=== PATIENT | female | born 2000 | race Asian ===

== ENCOUNTER 2019-10-31 15:41 | Inpatient (IN) | payer OTHER ==
[2019-10-31] MEDS ORDERED: NALOXONE INJ 0.4MG/1ML VIAL (J2310 PER 1MG) As Ordered ONE (15:47)
[2019-10-31] MEDS ORDERED: LIDOCAINE 2% 5ML JELLY UROJET TOP ONE (16:00)
[2019-10-31] MEDS ORDERED: NS 1,000 ML IV ONE ×3 (16:00→21:45)
[2019-10-31] MEDS ORDERED: NALOXONE INJ 0.4MG/1ML VIAL (J2310 PER 1MG) IV STA ×2 (16:09→16:14)
[2019-10-31] MEDS ORDERED: FAMOTIDINE IV BAG 20 MG in IV 1 EA IV ONE (16:15)
[2019-10-31] MEDS ORDERED: methylPREDNISolone INJ 125 MG/2 ML VIAL (J2930) IV ONE (16:15)
[2019-10-31 16:27] LABS: BASO % 0.1 % (0.0-1.0); HEMATOCRIT 42.3 % (36.0-47.0); HEMOGLOBIN 13.1 g/dl (12.0-15.5); LYMPH # 0.9 10^3/uL (1.5-5.0); LYMPH % 6.4 % (24.0-44.0); MEAN CORPUSCULAR HEMOGLOBIN 18.9 pg (27.0-33.0); MEAN CORPUSCULAR VOLUME 61.1 fl (80.0-96.0); MONO # 0.5 10^3/uL (0.0-0.8); MONO % 3.3 % (0.0-5.0); NEUTROPHILS # 12.4 10^3/uL (1.5-8.5); NEUTROPHILS % 89.8 % (36.0-66.0); PLATELET COUNT, AUTOMATED 431 10^3/uL (150-450); RED BLOOD COUNT 6.92 10^6/uL (4.00-5.40); WHITE BLOOD COUNT 13.9 10^3/uL (4.0-10.0)
[2019-10-31 16:31] LABS: AMPHETAMINES LEVEL URINE NEGATIVE (NEGATIVE); BARBITURATES URINE POSITIVE (NEGATIVE); BENZODIAZEPINES URINE NEGATIVE (NEGATIVE); CANNABINOIDS URINE NEGATIVE (NEGATIVE); COCAINE METABOLITE URINE NEGATIVE (NEGATIVE); METHADONE URINE NEGATIVE (NEGATIVE); OPIATES URINE NEGATIVE (NEGATIVE); PHENCYCLIDINE URINE NEGATIVE (NEGATIVE)
[2019-10-31] MEDS ORDERED: AMMONIA AROMATIC INHALANT As Ordered ONE (16:48)
[2019-10-31] MEDS ORDERED: SODIUM BICARBONATE 8.4% INJ 50 ML SYRINGE As Ordered ONE (16:50)
[2019-10-31] MEDS ORDERED: SODIUM BICARBONATE 8.4% INJ 50 ML SYRINGE IV ONE ×2 (17:00→17:30)
[2019-10-31] MEDS ORDERED: SODIUM BICARBONATE 8.4% INJ 50 ML SYRINGE IV STA (17:07)
[2019-10-31 17:13] LABS: ACETAMINOPHEN LEVEL 54.8 UG/ML (10.0-30.0); ALBUMIN 5.1 GM/DL (3.2-5.2); ALT/SGPT 65 U/L (12-78); BILIRUBIN,DIRECT 0.2 MG/DL (0.0-0.2); BILIRUBIN,TOTAL 0.8 MG/DL (0.2-1.0); BLOOD UREA NITROGEN 9 MG/DL (7-18); CALCIUM LEVEL 9.2 MG/DL (8.5-10.1); CARBON DIOXIDE LEVEL 25 MEQ/L (21-32); CHLORIDE LEVEL 105 MEQ/L (98-107); CREATININE FOR GFR 0.94 MG/DL (0.55-1.30); ETHYL ALCOHOL (ETHANOL) < 0.003 % (0.000-0.010); GLOMERULAR FILTRATION RATE > 60.0 (>60); GLUCOSE, FASTING 163 MG/DL (70-100); POTASSIUM SERUM 4.3 MEQ/L (3.5-5.1); SALICYLATE LEVEL < 1.7 MG/DL (5.0-30.0); SODIUM LEVEL 140 MEQ/L (136-145); THYROID STIMULATING HORMONE 0.668 uIU/ML (0.358-3.740); TOTAL PROTEIN 8.7 GM/DL (6.4-8.2)
[2019-10-31] MEDS ORDERED: LR 1,000 ML IV ONE (17:15)
[2019-10-31] MEDS ORDERED: PROPOFOL 1,000 MG/100 ML VIAL As Ordered ONE (17:15)
[2019-10-31] MEDS ORDERED: propofoL 1,000 MG in IV 1 EA IV SCH (17:22)
[2019-10-31] MEDS ORDERED: SUCCINYLCHOLINE INJ 200 MG/10 ML VIAL (J0330) IV ONE (17:30)
[2019-10-31] MEDS ORDERED: ETOMIDATE INJ 20MG/10ML VIAL IV ONE (17:30)
[2019-10-31] MEDS ORDERED: MIDAZOLAM 5MG/ML 1ML VIAL (J2250 PER 1MG) As Ordered ONE ×2 (17:34→17:35)
[2019-10-31] MEDS ORDERED: MIDAZOLAM HCL 50 MG in D5W 40 ML IV SCH (17:45)
[2019-10-31] MEDS ORDERED: MIDAZOLAM 5MG/ML 1ML VIAL (J2250 PER 1MG) IV PRN (17:45)
[2019-10-31] MEDS ORDERED: MIDAZOLAM HCL 100 MG in D5W 80 ML IV SCH (17:45)
[2019-10-31 17:54] LABS: CPK CREATINE PHOSPHOKINASE 21484 U/L (26-192)
[2019-10-31 17:56] LABS: MAGNESIUM LEVEL 2.4 MG/DL (1.8-2.4)
[2019-10-31] MEDS ORDERED: REFRIGERATOR IV KEYS XX PRN (18:00)
[2019-10-31] MEDS ORDERED: LR 1,000 ML IV SCH (18:45)
[2019-10-31] MEDS ORDERED: D5W IV ONE ×2 (19:00→20:00)
[2019-10-31] MEDS ORDERED: ACETYLCYSTEINE IV ONE ×2 (19:00→20:00)
--- NOTE | 2019-10-31 19:00 | ECGEPIP ---
[facility] - ED Test Date: 2019-10-31 Pat Name: MEGAN SOUTH Department: Room: - Gender: Female Grades 1 [employer] 6 Teacher: lionel : 2000 Requested By: Tesha Brooks Order Number: [id number] Reading MD: Gilberto Plata Measurements Intervals [place] Rate: 109 P: 63 HI: 148 QRS: 232 QRSD: 92 T: 50 QT: 297 QTc: 401 Interpretive Statements SINUS TACHYCARDIA NO PRIORS FOR COMPARISON Electronically Signed on 10-31-2019 19:00:16 EDT by Gilberto Plata
--- NOTE | 2019-10-31 19:02 | ECGEPIP ---
[facility] - ED Test Date: 2019-10-31 Pat Name: MEGAN SOUTH Department: Room: - Gender: Female Cdl Truck Driver: espinoza : 2000 Requested By: Tesha Brooks Order Number: [id number] Reading MD: Gilberto Plata Measurements Intervals [place] Rate: 139 P: 106 CO: 171 QRS: 178 QRSD: 137 T: 6 QT: 387 QTc: 589 Interpretive Statements SINUS TACHYCARDIA MARKED RIGHT AXIS DEVIATION RIGHT BUNDLE BRANCH BLOCK, NEW COMPARED TO PRIOR ON SAME DATE Electronically Signed on 10-31-2019 19:02:10 EDT by Gilberto Plata
--- NOTE | 2019-10-31 19:08 | ECGEPIP ---
[facility] - ED Test Date: 2019-10-31 Pat Name: MEGAN SOUTH Department: Room: - Gender: Female Head Esthetician: espinoza : 2000 Requested By: Tesha Brooks Order Number: [id number] Reading MD: Gilberto Plata Measurements Intervals [place] Rate: 128 P: SC: 0 QRS: 185 QRSD: 143 T: 24 QT: 432 QTc: 631 Interpretive Statements SINUS TACHYCARDIA RIGHT BUNDLE BRANCH BLOCK SIMILAR TO PRIOR ON SAME DATE Electronically Signed on 10-31-2019 19:08:22 EDT by Gilberto Plata
[2019-10-31] MEDS ORDERED: PANTOPRAZOLE 40MG VIAL (C9113 PER 1) IV SCH (20:00)
[2019-10-31 20:05] VITALS: BP 111/86
[2019-10-31] MEDS: ENOXAPARIN 30MG/0.3ML SYRINGE (J1650 PER 10MG) SC SCH (20:35)
[2019-10-31] MEDS: CHLORHEXIDINE GLUCONATE 0.12 % 15ML UDC (PERIDEX ORAL RINSE) MT SCH (20:35)
[2019-10-31 20:57] LABS: VENOUS BASE EXCESS 0.2 (-2.0-2.0); VENOUS HCO3 22.9 MEQ/L (23.0-27.0); VENOUS PARTIAL PRESSURE CO2 31.8 mmHg (38.0-50.0); VENOUS PARTIAL PRESSURE O2 145.7 mmHg (30.0-50.0); VENOUS PH 7.476 UNITS (7.330-7.430); VENOUS STANDARD HCO3 24.7 MEQ/L; VENOUS TOTAL CO2 23.9 MEQ/L (24.0-28.0)
[2019-10-31 21:00] VITALS: BP 114/91
[2019-10-31] MEDS ORDERED: diphenhydrAMINE 25MG CAP PO PRN (21:00)
[2019-10-31] MEDS ORDERED: diphenhydrAMINE 50MG/ML VIAL (J1200) IV PRN (21:00)
[2019-10-31 21:14] LABS: INR 1.28; PROTHROMBIN TIME 15.7 SECONDS (11.8-14.0)
[2019-10-31 21:30] LABS: ALBUMIN 3.8 GM/DL (3.2-5.2); ALT/SGPT 73 U/L (12-78); BILIRUBIN,TOTAL 0.7 MG/DL (0.2-1.0); BLOOD UREA NITROGEN 6 MG/DL (7-18); CALCIUM LEVEL 8.3 MG/DL (8.5-10.1); CARBON DIOXIDE LEVEL 21 MEQ/L (21-32); CHLORIDE LEVEL 112 MEQ/L (98-107); CREATININE FOR GFR 0.76 MG/DL (0.55-1.30); GLOMERULAR FILTRATION RATE > 60.0 (>60); GLUCOSE, FASTING 156 MG/DL (70-100); POTASSIUM SERUM 3.4 MEQ/L (3.5-5.1); SODIUM LEVEL 149 MEQ/L (136-145); TOTAL PROTEIN 6.8 GM/DL (6.4-8.2)
[2019-10-31] MEDS ORDERED: GLUCAGON INJ 1MG VIAL SC PRN (21:45)
[2019-10-31] MEDS ORDERED: GLUCOSE 4GM CHEW TABLET PO PRN (21:45)
[2019-10-31] MEDS ORDERED: D5W/0.45% SODIUM CHLORIDE 1,000 ML IV SCH (21:45)
[2019-10-31] MEDS ORDERED: DEXTROSE 50% 50 ML SYRINGE IV PRN (21:45)
[2019-10-31 22:00] VITALS: BP 116/87
[2019-10-31] MEDS: KCL 10MEQ/100ML SWI (KRUN) 10 MEQ in IV 1 EA IV SCH (22:19)
[2019-10-31 23:00] LABS: CPK CREATINE PHOSPHOKINASE 24116 U/L (26-192)
--- NOTE | 2019-10-31 23:40 | REP ---
REASON: Unresponsive due to drug overdose. PRIORS: None. FINDINGS: The technique utilized in obtaining the radiograph has magnified the cardiac silhouette and accentuated the interstitial markings. The superior mediastinal structures are midline. The cardiac silhouette is unremarkable in size, shape, and position. The diaphragmatic surfaces of the lungs are regular, and the costophrenic angles are clear. The pulmonary beauchamp are clear. The imaged osseous structures are intact. IMPRESSION: There is no acute cardiopulmonary disease. Electronically Signed by Marcelo Rain DO 11/01/2019 09:44 A
[2019-11-01] VITALS (22 sets, daily range): BP systolic 100–120; BP diastolic 70–90
[2019-11-01] MEDS ORDERED: ACETYLCYSTEINE IV ONE ×2
[2019-11-01] MEDS ORDERED: D5W IV ONE ×2
[2019-11-01] MEDS ORDERED: ETOMIDATE INJ 20MG/10ML VIAL ONE (00:08)
[2019-11-01] MEDS ORDERED: SUCCINYLCHOLINE 100 MG/5 ML SYRINGE (J0330) ONE (00:08)
[2019-11-01] MEDS: MIDAZOLAM INJ 2MG/2ML VIAL (J2250 PER 1MG) IV PRN ×11 (00:22→22:11)
[2019-11-01] MEDS: HumaLOG INSULIN (NovoLOG) PER UNIT SC SCH ×5 (00:22→23:51)
[2019-11-01] MEDS: NS 0.45% 1,000 ML IV SCH ×4 (00:22→19:09)
[2019-11-01] MEDS: KCL 10MEQ/100ML SWI (KRUN) 10 MEQ in IV 1 EA IV SCH ×2 (00:22→01:42)
--- NOTE | 2019-11-01 00:50 | REP ---
CT BRAIN WITHOUT CONTRAST: HISTORY: Unresponsiveness. CT FINDINGS: Digital preliminary theoretical physics teacher radiograph demonstrates a nasopharyngeal airway tube. Bony calvarium is intact. Bone window settings show the visualized paranasal sinuses are clear. No intraorbital abnormality is seen. No skull fracture or bony destructive lesion is seen. No scalp hematoma is appreciated. On soft tissue window settings, lateral, third, fourth ventricles are normal in size and position. [place]-white differentiation pattern is normal above and below the tentorium. There is no evidence of intracranial hemorrhage. No extra-axial fluid collection is seen. No mass or infarct is observed. No midline shift seen. IMPRESSION: Nasopharyngeal airway tube noted. Normal noncontrast head CT. Electronically Signed by Geo Mendez MD 11/01/2019 08:19 A
--- NOTE | 2019-11-01 01:21 | REP ---
PORTABLE CHEST X-RAY, SINGLE VIEW: HISTORY: Post intubation. COMPARISON CHEST X-RAY: 10/31/2019 FINDINGS: Endotracheal tube is seen in good position. The endotracheal cuff appears slightly overinflated. Nasogastric tube enters the left upper quadrant of the abdomen. The lungs are symmetrically aerated and clear. The pleural angles are sharp. Heart size is normal. IMPRESSION: Endotracheal tube cuff slightly overinflated. Tube in good position. NG tube in place. Otherwise, no acute disease. Electronically Signed by Geo Mendez MD 11/01/2019 08:23 A
[2019-11-01 04:56] LABS: HEMATOCRIT 38.2 % (36.0-47.0); HEMOGLOBIN 11.9 g/dl (12.0-15.5); MEAN CORPUSCULAR HEMOGLOBIN 18.8 pg (27.0-33.0); MEAN CORPUSCULAR HGB CONC 31.2 g/dl (32.0-36.5); MEAN CORPUSCULAR VOLUME 60.4 fl (80.0-96.0); RED BLOOD COUNT 6.32 10^6/uL (4.00-5.40); WHITE BLOOD COUNT 16.4 10^3/uL (4.0-10.0)
[2019-11-01 05:35] LABS: LYMPHOCYTES 10 % (16-44); MONOCYTES 1 % (0-5); NEUTROPHILS 88 % (28-66); PLATELET CLUMPS SMALL AMT; PLATELET ESTIMATE NORMAL (NORMAL)
[2019-11-01 05:36] LABS: ANISOCYTOSIS 1+; HYPOCHROMASIA 1+
[2019-11-01 05:39] LABS: MICROCYTOSIS 3+; OVALOCYTES 1+; POLYCHROMASIA 1+
[2019-11-01 05:50] LABS: ALBUMIN 3.5 GM/DL (3.2-5.2); ALT/SGPT 74 U/L (12-78); BILIRUBIN,TOTAL 0.6 MG/DL (0.2-1.0); BLOOD UREA NITROGEN 5 MG/DL (7-18); CALCIUM LEVEL 8.3 MG/DL (8.5-10.1); CARBON DIOXIDE LEVEL 21 MEQ/L (21-32); CHLORIDE LEVEL 113 MEQ/L (98-107); CREATININE FOR GFR 0.61 MG/DL (0.55-1.30); GLOMERULAR FILTRATION RATE > 60.0 (>60); GLUCOSE, FASTING 98 MG/DL (70-100); MAGNESIUM LEVEL 1.9 MG/DL (1.8-2.4); POTASSIUM SERUM 3.5 MEQ/L (3.5-5.1); SODIUM LEVEL 143 MEQ/L (136-145); TOTAL PROTEIN 6.2 GM/DL (6.4-8.2)
[2019-11-01 06:08] LABS: ABG BASE EXCESS -1.6 (-2.0-2.0); ABG HCO3 19.9 MEQ/L (22.0-26.0); ABG O2 SATURATION 98.6 % (95.0-99.0); ABG PARTIAL PRESSURE CO2 25.2 mmHg (35.0-45.0); ABG PARTIAL PRESSURE O2 128.6 mmHg (75.0-100.0); ABG STANDARD HCO3 23.1 MEQ/L (22.0-26.0); ABG TOTAL CO2 20.7 MEQ/L (22.0-29.0); ABG pH (ARTERIAL) 7.516 UNITS (7.350-7.450)
[2019-11-01 06:22] LABS: HEMATOCRIT 36.6 % (36.0-47.0); HEMOGLOBIN 11.5 g/dl (12.0-15.5); MEAN CORPUSCULAR HEMOGLOBIN 18.9 pg (27.0-33.0); MEAN CORPUSCULAR HGB CONC 31.4 g/dl (32.0-36.5); MEAN CORPUSCULAR VOLUME 60.2 fl (80.0-96.0); PLATELET COUNT, AUTOMATED 362 10^3/uL (150-450); RED BLOOD COUNT 6.08 10^6/uL (4.00-5.40); WHITE BLOOD COUNT 16.6 10^3/uL (4.0-10.0)
[2019-11-01 06:22] LABS: CPK CREATINE PHOSPHOKINASE 18148 U/L (26-192)
--- NOTE | 2019-11-01 07:01 | REP ---
Clinical: Status post intubation. Comparison: 10/31/2019. Findings: Endotracheal tube approximately 1 cm above the adilene. Nasogastric tube courses below left hemidiaphragm. Mediastinum and cardiac silhouette are normal. Right lower lobe infiltrate suggests atelectasis/pneumonia. No effusion. No pneumothorax. Impression: 1. Endotracheal tube approximately 1 cm above the adilene may warrant reevaluation and repositioning. 2. New right lower lobe opacities suggesting atelectasis/pneumonia. Electronically Signed by Corby Crowell MD 11/01/2019 06:54 A
[2019-11-01 07:15] LABS: LYMPHOCYTES 11 % (16-44); MONOCYTES 3 % (0-5); NEUTROPHILS 86 % (28-66); PLATELET ESTIMATE NORMAL (NORMAL)
[2019-11-01 07:16] LABS: MICROCYTOSIS 3+
[2019-11-01 07:17] LABS: OVALOCYTES 2+
[2019-11-01] MEDS: PANTOPRAZOLE 40MG VIAL (C9113 PER 1) IV SCH ×2 (08:37→20:00)
[2019-11-01] MEDS: CHLORHEXIDINE GLUCONATE 0.12 % 15ML UDC (PERIDEX ORAL RINSE) MT SCH ×2 (08:38→20:00)
[2019-11-01] MEDS: propofoL 1,000 MG in IV 1 EA IV SCH ×2 (08:38→19:55)
--- NOTE | 2019-11-01 09:59 | HPE ---
DATE OF ADMISSION: 10/31/2019 CHIEF COMPLAINT: Altered mental status. History was obtained from the chart and collateral information as the patient was unresponsive and unable to provide history. HISTORY OF PRESENT ILLNESS: Ms. Phillips is a 19-year-old female with no significant medical history who presented with a complaint of altered mental status. The patient apparently had gotten into an argument with her family the night before over graduating college. She had gone into her room and barricaded herself in there. When she did not come down as usual in the morning the patient's family had gone into her room and found her unresponsive. She reportedly had her pill box medications there that were empty. As per her father, she has things for pain such as Tylenol, Motrin, as well as medications for migraine which is unclear if they were prescription medications or qtho-[id number]-[id number] medications for migraines. She does not have any other medications that he knows of in terms for depression or anxiety. There was some suspicion that the patient may have took Motrin PM as per the family. In the emergency department (ED), the patient was unresponsive with a [place] coma scale (GCS) of 3 or 4. The patient did receive Narcan with no improvement in mental status. She was responding very minimally to painful stimuli but not maintaining any significant arouse ability. She had a nasal airway in place but appeared to be saturating oxygenating well. She did have evidence of hives noted on her legs and hips during her skin exam. The patient initially had presented with sinus tachycardia with heart rate in the 100s. She then was sinus tachycardic to a heart rate in the 140s. She was given 50 mEq of bicarbonate times two with minimal improvement. She appeared to have a widened QRS on her EKG. Given her ongoing depressed mental status with concern for airway protection, the patient was intubated in the ED with a size 7 endotracheal tube. Prior to intubation, the patient received another dose of bicarbonate She was also given rapid sequence medications for intubation. The patient also had received normal saline 1 liter bolus in the ED. PAST MEDICAL AND SURGICAL HISTORY: History of headaches and migraines. SOCIAL HISTORY: Unable to be obtained as the patient is intubated and sedated. Family denies history of tobacco use, alcohol use or other illicit drug use. HOME MEDICATIONS: None reported. ALLERGIES: NO KNOWN DRUG ALLERGIES. FAMILY HISTORY: The patient is adopted. PHYSICAL EXAMINATION: Temperature 97.7, pulse is 141, blood pressure 132/91, 99% on room air. GENERAL: The patient is a thin female, is lying in the stretcher and unresponsive to voice and only very minimally responsive to painful stimuli. HEENT: Head is normocephalic, atraumatic. Pupils are small, sluggishly reactive. Mucous membranes are moist. NECK: Is supple. Trachea is midline. There is no palpable cervical adenopathy. CARDIAC: Tachycardiac, regular rate and rhythm. Normal S1 and S2. Unable to appreciate any murmurs. RESPIRATORY: Clear to auscultation bilaterally with no wheezes, rales or rhonchi. ABDOMEN: Is soft, nontender, nondistended. EXTREMITIES: There is no lower extremity edema noted. There are hives noted in particular on her right hip as well as in her left inner knee and foot area. LABORATORY DATA: WBC 13.9, hemoglobin 13.1, platelets are 431. Chemistry: Sodium is 140, potassium 4.3, chloride is 105, bicarbonate 25, BUN 9, creatinine 0.94, glucose is 163. Lactic acid was 3.2. Calcium is 9.2. Magnesium 2.4. AST, ALT 299 and 65. Alkaline phosphatase 75. CPK 21,484. Albumin is 5.1. TSH within normal limits. Beta hCG is negative. INR is 1.28. Urine toxicology was positive for barbiturates and negative for everything else. Salicylate level was 1.7. Tylenol level was 54.8. Alcohol level was negative. IMAGING: Chest x-ray on admission did not show any focal opacities or infiltrates. No pleural effusion. Head CT read is pending, but preliminary read did not show any focal intracranial abnormalities. Post procedure chest x-ray shows endotracheal tube (ET) tube in good position and an orogastric (OG) tube coursing below the diaphragm. ASSESSMENT AND PLAN: Ms. Phillips is a 19-year-old female with no significant medical history who presented with complaints of altered mental status and a possible overdose. The patient had gotten into an argument with her family earlier and later in the day when she had not come down as usual in the morning she was found in her bedroom unresponsive. There is some suspicion that she may have taken some szij-cig-qdccmuj medications such as some Motrin PM. In the ED, the patient was unresponsive. She did receive Narcan with no improvement in her mental status. She appeared to be oxygenating well, but given her depressed GCS score there was concern for airway protection. She had also become tachycardiac with what appeared to be a possible wide QRS and received bicarbonate with minimal improvement. She was intubated in the ED and placed on mechanical ventilation and transferred to the intensive care unit (ICU) for further management. Altered mental status secondary to drug overdose. Her urine toxicology is positive for barbiturates, however both ibuprofen and naproxen have been reported to cause false-positives. The patient's Tylenol level was also elevated and there was concern that she may have overdosed on acetaminophen as well. - The patient was started on acetylcysteine the 20-hour protocol. Will continue to monitor her closely for any adverse reactions and anaphylaxis. She did have hives on presentation prior to starting the acetylcysteine. Will give Benadryl as needed and monitor her vitals closely. - The patient will be continued on mechanical ventilation with pressure regulated volume control (PRVC) at settings of 350/15, 40 and 5. Will continue daily chest x-rays and arterial blood gases (ABGs) while intubated. - Will continue with Versed as needed for sedation. Propofol was discontinued given the risk of QTC prolongation. Will continue to monitor her mental status daily for potential weaning trials. - The patient's EKG was reviewed. The initial EKG had shown evidence of the sinus tachycardia with some left atrial enlargement and repeat EKGs that had shown possible QRS prolongation with related right bundle branch block with a left anterior fascicular block. With sedation the patient's heart rate improved and her QRS appeared normal and her QTC also appeared normalized. Will continue to monitor on tele and will continue to monitor electrolytes and replete as needed - Will continue to monitor her renal function and ins and outs with the Sheth catheter. - The patient did have elevated creatinine phosphokinase (CPK) on admission. She was given additional normal saline and bolus of lactated Ringer's and started on maintenance fluids initially with lactated Ringer's (LR). Will follow, repeat chemistry and address her maintenance fluid as needed. Will also followup a repeat CPK. - The patient did have mildly elevated aspartate aminotransferase (AST). Some of this may also be due to her elevated CPK. Will continue to monitor her liver function including coags and ammonia level given possible tylenol toxicity. - The patient did have elevated lactic acidosis on admission. Will continue to trend and monitor her lactic acid. Some of this may have been potentially from her acetaminophen overdose. Deep venous thrombosis (DVT) prophylaxis Lovenox, gastrointestinal (GI) prophylaxis pantoprazole. FULL CODE. Total critical care time spent not including procedures approximately 1 hour and 40 minutes. MTDD
[2019-11-01] MEDS: AUGMENTIN SUSP POWDER 250MG/5ML BTL 75ML PO SCH ×2 (12:11→20:02)
[2019-11-01 15:48] LABS: INR 1.34; PROTHROMBIN TIME 16.3 SECONDS (11.8-14.0)
[2019-11-01 16:14] LABS: ACETAMINOPHEN LEVEL 2.5 UG/ML (10.0-30.0); ALBUMIN 3.2 GM/DL (3.2-5.2); ALT/SGPT 80 U/L (12-78); BILIRUBIN,DIRECT < 0.1 MG/DL (0.0-0.2); BILIRUBIN,TOTAL 0.6 MG/DL (0.2-1.0)
--- NOTE | 2019-11-01 16:57 | CCN ---
DATE: 11/01/2019 The patient was seen and examined in this morning during bedside rounds. Earlier this morning, the patient was becoming more responsive. She was given Versed as needed for sedation and in the water project engineer had required more doses of the as-needed Versed. She is responding now more to painful stimuli with attempting to bat at the hands that are attending her, although she is not opening her eyes or following commands appropriately. The patient did also have a low-grade temperature this morning of 100.5. Her chest x-ray had shown new right lower lobe opacity, and she was started on antibiotics for aspiration pneumonia. PHYSICAL EXAMINATION: Maximal temperature 100.5, pulse 103, respirations 20, blood pressure 150/65, oxygen saturation 100% on 30% FiO2. Intake 1.5 liters, output 1 liter. GENERAL: The patient is intubated and sedated. She is more responsive today in terms of withdrawing from painful stimuli now and moving her arms to painful stimuli. She is not opening her eyes, however, or following commands appropriately. HEENT: Normocephalic, atraumatic. Pupils are small but reactive to light bilaterally. Mucous membranes are moist. NECK: Supple. Trachea is midline. There is no palpable seven adenopathy. CARDIAC: Regular rate and rhythm. Normal S1, S2. Unable to appreciate any murmurs. RESPIRATORY: Some diminished breath sounds at the right base with no wheezing, rales, or rhonchi noted. ABDOMEN: Soft, nontender, nondistended. EXTREMITIES: There is no lower extremity noted. There is improvement in the hives that were noted on her skin area. LABORATORY DATA: WBC 16.6, hemoglobin is 11.5, platelets are 302. Chemistry: Sodium is 143, potassium is 3.5, chloride is 113, bicarbonate 21, BUN 5, creatinine 0.61, glucose is 98. ABG: A pH 7.516, pCO2 of 25.2, pO2 of 188.6. Ammonia level was 26, CPK trending down to 18,148. Repeat Tylenol level was 32. Repeat lactic acid was 2.2. IMAGING STUDIES: Chest x-ray This morning shows endotracheal tube (ET) approximately 1 cm above adilene. There is a new right lower lobe opacity. ASSESSMENT AND PLAN: Ms. Phillips is a 19-year-old female with a past medical history of migraines, who presented with complaints of altered mental status and a possible overdose. There has been further information now, which states that this may have been a possible a suicide attempt, as the patient had gotten into argument with her family earlier in the day and then had gone up into her bedroom. When the family did not see her later in the morning, they had gone to find her unresponsive in the bedroom with her pill container next to her empty. In the emergency department (ED), the patient was unresponsive and was intubated for airway protection. She was found on urine toxicology to be positive for barbiturates, and this may possibly be due to one of her migraine medications, although we do not know for sure what her prescription migraine medication was. She also was found to have an elevated acetaminophen, and as the patient's father states she does have Tylenol as well as some Motrin and other medications for headaches in her pill box, she may have had Tylenol overdose. She was started on n-acetylcysteine protocol, and poison control was contacted on her admission and has been making recommendations. The patient did have an ammonia level checked as part of her evaluation for the altered mental status, which was normal - The patient will be completing n-acetylcysteine protocol later today. Her repeat Tylenol levels have been trending down, and she is due for another repeat Tylenol level prior to discontinuation of n-acetylcysteine. She has been continued to be monitored closely for any adverse reactions and anaphylaxis. - The patient was given Benadryl for hives that she had on presentation, and today they do appear improved. Will continue to monitor and treat as needed. - The patient is continued on mechanical ventilation with pressure-regulated volume control (PRVC) at settings of 350/15/30 in 5. Will continue with daily chest x-rays and arterial blood gases (ABGs) while intubated. - Will continue with ventilator bundle care with head of bed elevation and chlorhexidine mouth wash. - The patient's chest x-ray this morning did show evidence of new right lower lobe opacity, and she did have a fever this morning as well and some leukocytosis. Suspect she did have an aspiration pneumonia given her significant altered mental status. Will be started on Augmentin for community-acquired aspiration pneumonia and will check a sputum culture. Given her concern for Tylenol overdose as well as a possible overdose of other medications, such as salicylates, although her level was low on admission, will hold off on Tylenol or ibuprofen for fever and if needed will place her on a cooling blanket. - The patient's QTC did appear improved on this morning's EKG. She has been required increasing amounts of Versed for sedation, and so we will start her on a propofol drip and monitor her on telemetry for QTC prolongation. She will continue with Versed as needed for sedation as well. - Will likely do a weaning trial in the morning, as the patient's mental status has been slowly improving, and extubate if tolerated. - Continue IV fluid hydration for her elevated creatine phosphokinase (CPK) . Her renal function has remained normal. Will continue to monitor electrolytes and replete as needed and continue to trend CPK. - Will continue Sheth for monitoring intake and output. - Her AST has improved, and her lactic acidosis has also been trending down. Deep vein thrombosis (DVT) prophylaxis. Lovenox. Gastrointestinal (GI) I prophylaxis. Pantoprazole, increased to twice a day, as she was having some possible dark coffee-ground output from her orogastric (OG) tube, but this has improved since this morning. Full code. TOTAL FOR CRITICAL CARE TIME SPENT, NOT INCLUDING PROCEDURES: Approximately 50 minutes
[2019-11-01] MEDS ORDERED: POTASSIUM CHLORIDE 10% LIQ 20 MEQ/15 ML UDC PO ONE (17:00)
[2019-11-01] MEDS: ENOXAPARIN 30MG/0.3ML SYRINGE (J1650 PER 10MG) SC SCH (20:03)
--- NOTE | 2019-11-01 21:56 | ECGEPIP ---
[facility] Test Date: 2019-11-01 Pat Name: MEGAN SOUTH Department: Room: [place] [address] Gender: Female Promotions Associate: GARY : 2000 Requested By: STEPHAN GARNICA Order Number: [id number] Reading MD: Vamsi Hensley Measurements Intervals [place] Rate: 97 P: 72 ND: 124 QRS: 259 QRSD: 96 T: -87 QT: 372 QTc: 474 Interpretive Statements SINUS RHYTHM Poor R-wave progression Right axis deviation PATTERN CONSISTENT WITH PULMONARY DISEASE ABNORMAL QRS-T ANGLE Nonspecific ST-T abnormalities Electronically Signed on 11-01-2019 21:55:57 EDT by Vamsi Hensley
[2019-11-02] VITALS (20 sets, daily range): BP systolic 100–123; BP diastolic 60–82
[2019-11-02] MEDS: MIDAZOLAM INJ 2MG/2ML VIAL (J2250 PER 1MG) IV PRN ×3 (00:50→05:57)
[2019-11-02] MEDS: NS 0.45% 1,000 ML IV SCH ×4 (01:40→21:45)
[2019-11-02] MEDS: propofoL 1,000 MG in IV 1 EA IV SCH (04:30)
[2019-11-02 04:45] LABS: BASO % 0.2 % (0.0-1.0); HEMATOCRIT 32.7 % (36.0-47.0); HEMOGLOBIN 10.2 g/dl (12.0-15.5); LYMPH # 1.4 10^3/uL (1.5-5.0); LYMPH % 8.7 % (24.0-44.0); MEAN CORPUSCULAR HEMOGLOBIN 19.1 pg (27.0-33.0); MEAN CORPUSCULAR HGB CONC 31.2 g/dl (32.0-36.5); MEAN CORPUSCULAR VOLUME 61.2 fl (80.0-96.0); MONO # 0.6 10^3/uL (0.0-0.8); NEUTROPHILS # 13.5 10^3/uL (1.5-8.5); NEUTROPHILS % 86.6 % (36.0-66.0); RED BLOOD COUNT 5.34 10^6/uL (4.00-5.40); WHITE BLOOD COUNT 15.6 10^3/uL (4.0-10.0)
[2019-11-02 04:49] LABS: PLATELET COUNT, AUTOMATED 206 10^3/uL (150-450)
[2019-11-02 05:12] LABS: ALBUMIN 3.2 GM/DL (3.2-5.2); ALT/SGPT 83 U/L (12-78); BILIRUBIN,TOTAL 0.5 MG/DL (0.2-1.0); BLOOD UREA NITROGEN 5 MG/DL (7-18); CALCIUM LEVEL 8.1 MG/DL (8.5-10.1); CARBON DIOXIDE LEVEL 23 MEQ/L (21-32); CHLORIDE LEVEL 109 MEQ/L (98-107); CREATININE FOR GFR 0.68 MG/DL (0.55-1.30); GLOMERULAR FILTRATION RATE > 60.0 (>60); GLUCOSE, FASTING 73 MG/DL (70-100); MAGNESIUM LEVEL 1.7 MG/DL (1.8-2.4); POTASSIUM SERUM 3.5 MEQ/L (3.5-5.1); SODIUM LEVEL 142 MEQ/L (136-145); TOTAL PROTEIN 5.9 GM/DL (6.4-8.2)
[2019-11-02] MEDS: HumaLOG INSULIN (NovoLOG) PER UNIT SC SCH ×2 (05:57→11:46)
[2019-11-02 06:04] LABS: ABG BASE EXCESS -1.2 (-2.0-2.0); ABG HCO3 20.6 MEQ/L (22.0-26.0); ABG O2 SATURATION 98.4 % (95.0-99.0); ABG PARTIAL PRESSURE CO2 25.3 mmHg (35.0-45.0); ABG PARTIAL PRESSURE O2 113.5 mmHg (75.0-100.0); ABG STANDARD HCO3 23.5 MEQ/L (22.0-26.0); ABG TOTAL CO2 21.3 MEQ/L (22.0-29.0); ABG pH (ARTERIAL) 7.528 UNITS (7.350-7.450)
--- NOTE | 2019-11-02 06:39 | REP ---
Clinical: Intubation. Comparison: 11/01/2019. Findings: Endotracheal tube and nasogastric tube are in satisfactory position. Mediastinum and cardiac silhouette are normal. Left hemithorax is clear. Hazy opacification involving the right mid to lower lung zone slightly increased from prior examination suggesting underlying possible pneumonitis or small layering effusion. Impression: Cannot exclude right mid to lower lung zone opacity possibly reflecting airspace disease versus small layering effusion. Electronically Signed by Corby Crowell MD 11/02/2019 06:30 A
[2019-11-02] MEDS: AUGMENTIN SUSP POWDER 250MG/5ML BTL 75ML PO SCH ×3 (08:47→21:45)
[2019-11-02] MEDS: PANTOPRAZOLE 40MG VIAL (C9113 PER 1) IV SCH ×2 (08:47→21:44)
[2019-11-02] MEDS: CHLORHEXIDINE GLUCONATE 0.12 % 15ML UDC (PERIDEX ORAL RINSE) MT SCH (08:47)
[2019-11-02 09:23] LABS: CPK CREATINE PHOSPHOKINASE 13781 U/L (26-192)
[2019-11-02] MEDS ORDERED: MAG SULF 1GM/100ML (MAG RUN) 1 GM in IV 1 EA IV ONE (09:30)
[2019-11-02 14:57] LABS: ALBUMIN 3.2 GM/DL (3.2-5.2); ALT/SGPT 86 U/L (12-78); BILIRUBIN,TOTAL 0.7 MG/DL (0.2-1.0); BLOOD UREA NITROGEN 4 MG/DL (7-18); CALCIUM LEVEL 7.9 MG/DL (8.5-10.1); CARBON DIOXIDE LEVEL 24 MEQ/L (21-32); CHLORIDE LEVEL 109 MEQ/L (98-107); CPK CREATINE PHOSPHOKINASE 12740 U/L (26-192); CREATININE FOR GFR 0.56 MG/DL (0.55-1.30); GLOMERULAR FILTRATION RATE > 60.0 (>60); GLUCOSE, FASTING 78 MG/DL (70-100); POTASSIUM SERUM 3.4 MEQ/L (3.5-5.1); SODIUM LEVEL 139 MEQ/L (136-145); TOTAL PROTEIN 6.3 GM/DL (6.4-8.2)
[2019-11-02] MEDS ORDERED: POTASSIUM CHLORIDE 10 MEQ SR TABLET PO ONE (15:30)
--- NOTE | 2019-11-02 15:40 | CCN ---
DATE: 11/02/2019 The patient was seen and examined this morning during bedside rounds. She is on propofol for sedation and has been more responsive today, particularly with painful stimuli. The patient had a sedation vacation performed today and was opening her eyes and following commands appropriately and nodding or shaking her head to questions appropriately. Overnight the patient had a low grade temperature with a maximum temperature (Tmax) of 100.1. The patient was placed on a weaning trial, which she tolerated well and was extubated to oxygen supplementation. PHYSICAL EXAMINATION: Tmax 100.1, pulse is 89, respirations 20, blood pressure 119/80, oxygen saturation sat 100% on 25% FiO2. In 4.3 liters, out 3.7. General: The patient is intubated and was sedated. On a sedation vacation she is opening her eyes and following commands appropriately as well as being able to nod or shake her head to questions. HEENT: Normocephalic, atraumatic. Pupils are react to light bilaterally. Mucous membranes are moist. Neck is supple. Trachea is midline. There is no palpable cervical adenopathy. Cardiac: Regular rate and rhythm. Normal S1,S2. Unable to appreciate any murmurs. Respiratory: Diminished breath sounds on the right base with no wheezing, rales or rhonchi noted. Abdomen is soft, nontender, nondistended. No palpable hepatomegaly. Extremities: There is no lower extremity edema noted bilaterally. LABORATORY DATA: WBC 15.6, hemoglobin 10.2, platelets 206. Chemistry: Sodium is 142, potassium 3.5, chloride is 109, bicarbonate 23, BUN 5, creatinine 0.68, glucose is 78. Calcium 8.1, phosphorus 3.0, magnesium 1.7, AST 326, ALT 83. ABG: pH is 7.528, pCO2 of 25.3, and pO2 of 113.5. IMAGING: Chest x-ray shows endotracheal tube (ET) tube in good position and an orogastric (OG) tube coursing below the diaphragm. There is hazy opacification in the right mid to lower lung zone slightly increased from prior with possible layering small effusion. ASSESSMENT/PLAN: Ms. Phillips is a 19-year-old female with a past medical history of migraines who presented with complaints of altered mental status and a possible intentional overdose. In the emergency department (ED), the patient was unresponsive with a Gardiner coma scale (GCS) of 3 or 4 and was intubated for airway protection. Her urine toxicology on admission was positive for barbiturates, which may possibly be due to one of her prescription migraine medications. She also had an elevated acetaminophen level with concern for a possible Tylenol overdose. She was started on the acetylcysteine protocol and Poison Control was contacted on admission. Metabolic encephalopathy secondary to possible intentional overdose with acetaminophen toxicity. - The patient completed acetylcysteine protocol and her Tylenol level has appropriately trended down. - The patient was on propofol for sedation while on mechanical ventilation, which was held during a weaning trial today, and she was awake and responsive appropriately and able to answer questions with nodding and shaking her head. The patient was therefore placed on a weaning trial, which she tolerated well, and was successfully extubated in the morning to oxygen supplementation. - The patient will be placed on one-to-one sitter for suicidal ideation after her extubation. Psychiatry has been consulted and appreciate their recommendations. - Will continue the patient on Augmentin for a possible aspiration pneumonia. Will followup results of her sputum culture. Her chest x-ray today showed possible small layering effusion. If she continues to have fever and persistent leukocytosis, would get a CT chest to evaluate for a parapneumonic effusion that may need a possible thoracentesis. - If the patient has fever, can consider cooling blanket. Would have to hold off on Tylenol or nonsteroidal anti-inflammatory drugs (NSAIDs) given her potential ingestion. - Continue monitoring electrolytes and replete as needed. - The patient had elevated creatinine phosphokinase (CPK) on admission, however, her renal function has continued to remain normal. She is on IV fluids with D5 half normal saline (NS) at 150 mL/h. Will continue with IV fluid hydration and continue to trend her CPK. - The patient had a Sheth placed for critical monitoring. As she is extubated, will have a trial of void performed and will remove Sheth if tolerating. - Will start the patient on liquids and advance her diet as tolerated. Deep venous thrombosis (DVT) prophylaxis, Lovenox. Gastrointestinal (GI) prophylaxis, pantoprazole twice a day. FULL CODE. Total critical care time spent not including any procedures approximately 50 minutes. Please not hesitate to call if any further questions or concerns. MTDD
[2019-11-02] MEDS ORDERED: CHLORASEPTIC SPRAY MT PRN (16:30)
[2019-11-02 20:28] LABS: INR 1.23; PROTHROMBIN TIME 15.2 SECONDS (11.8-14.0)
[2019-11-02 20:44] LABS: ALBUMIN 3.2 GM/DL (3.2-5.2); BILIRUBIN,DIRECT 0.3 MG/DL (0.0-0.2); BILIRUBIN,TOTAL 0.7 MG/DL (0.2-1.0); TOTAL PROTEIN 6.6 GM/DL (6.4-8.2)
[2019-11-02] MEDS: ENOXAPARIN 30MG/0.3ML SYRINGE (J1650 PER 10MG) SC SCH (21:46)
[2019-11-03] VITALS: BP 110/56
[2019-11-03 03:18] LABS: HEMATOCRIT 27.4 % (36.0-47.0); HEMOGLOBIN 8.7 g/dl (12.0-15.5); MEAN CORPUSCULAR HEMOGLOBIN 19.7 pg (27.0-33.0); MEAN CORPUSCULAR HGB CONC 31.8 g/dl (32.0-36.5); MEAN CORPUSCULAR VOLUME 62.1 fl (80.0-96.0); PLATELET COUNT, AUTOMATED 189 10^3/uL (150-450); RED BLOOD COUNT 4.41 10^6/uL (4.00-5.40); WHITE BLOOD COUNT 13.8 10^3/uL (4.0-10.0)
[2019-11-03 03:19] LABS: BASO % 0.2 % (0.0-1.0); EOS % 0.1 % (0.0-3.0); LYMPH # 1.2 10^3/uL (1.5-5.0); LYMPH % 8.4 % (24.0-44.0); MONO # 0.4 10^3/uL (0.0-0.8); MONO % 3.2 % (0.0-5.0); NEUTROPHILS # 12.1 10^3/uL (1.5-8.5)
[2019-11-03 03:20] LABS: INR 1.35; PROTHROMBIN TIME 16.4 SECONDS (11.8-14.0)
[2019-11-03 03:50] LABS: BLOOD UREA NITROGEN 5 MG/DL (7-18); GLUCOSE, FASTING 60 MG/DL (70-100)
[2019-11-03 03:51] LABS: ALBUMIN 3.1 GM/DL (3.2-5.2); ALT/SGPT 93 IU/L (0-32); BILIRUBIN,TOTAL 0.7 MG/DL (0.2-1.0); CALCIUM LEVEL 7.9 MG/DL (8.5-10.1); CARBON DIOXIDE LEVEL 20 mmol/L (20-29); CHLORIDE LEVEL 108 MEQ/L (98-107); CREATININE FOR GFR 0.46 MG/DL (0.55-1.30); GLOMERULAR FILTRATION RATE > 60.0 (>60); PHOSPHORUS LEVEL 2.6 MG/DL (2.5-4.9); POTASSIUM SERUM 3.7 MEQ/L (3.5-5.1); SODIUM LEVEL 138 MEQ/L (136-145); TOTAL PROTEIN 5.9 GM/DL (6.4-8.2)
[2019-11-03 04:00] VITALS: BP 94/52
[2019-11-03] MEDS: NS 0.45% 1,000 ML IV SCH ×3 (04:04→18:57)
[2019-11-03 04:17] LABS: MAGNESIUM LEVEL 2.1 MG/DL (1.8-2.4)
[2019-11-03 05:18] LABS: ALT/SGPT 101 U/L (12-78); BILIRUBIN,TOTAL 0.6 MG/DL (0.2-1.0); BLOOD UREA NITROGEN 5 MG/DL (7-18); CALCIUM LEVEL 8.1 MG/DL (8.5-10.1); CARBON DIOXIDE LEVEL 19 MEQ/L (21-32); CHLORIDE LEVEL 107 MEQ/L (98-107); CPK CREATINE PHOSPHOKINASE 12480 U/L (26-192); CREATININE FOR GFR 0.49 MG/DL (0.55-1.30); GLOMERULAR FILTRATION RATE > 60.0 (>60); GLUCOSE, FASTING 61 MG/DL (70-100); POTASSIUM SERUM 3.7 MEQ/L (3.5-5.1); SODIUM LEVEL 140 MEQ/L (136-145); TOTAL PROTEIN 6.4 GM/DL (6.4-8.2)
[2019-11-03] MEDS: AUGMENTIN SUSP POWDER 250MG/5ML BTL 75ML PO SCH (05:20)
--- NOTE | 2019-11-03 07:36 | REP ---
Clinical: Status post extubation. Comparison: 11/02/2019. Findings: Mediastinum and cardiac silhouette are normal. Lung beauchamp demonstrate subtle opacity in the right mid to lower lung zone improved from prior examination. No new acute process. No obvious effusion. No pneumothorax. Skeletal structures intact. Impression: Improved aeration with decreased right lower lobe opacity. Electronically Signed by Corby Crowell MD 11/03/2019 07:27 A
[2019-11-03 08:05] VITALS: BP 117/68
--- NOTE | 2019-11-03 08:41 | REP ---
CT CHEST WITHOUT CONTRAST: HISTORY: Aspiration pneumonia with effusion. Fever. Comparison chest x-rays most recent which are from November 03, 2019. FINDINGS: There is patchy ground-glass opacity and a focal parenchymal consolidation in the right lower lobe. Some ground-glass opacity and focal parenchymal consolidation are seen in the right upper lobe and ground-glass opacities are distributed in the right middle lobe. The left lung is clear. There is a tiny amount of right pleural effusion. There is mild distension of the stomach with fluid and air. No hilar or mediastinal mass or adenopathy is observed. No pneumothorax is seen. No endobronchial lesion is appreciated. However, there is an apparent linear defect in the posterior wall of the trachea at the thoracic inlet. There are several other tiny bubbles of air along the posterior wall of the trachea just distal to this. I cannot exclude a posterior wall tracheal injury. IMPRESSION: Multifocal pneumonia right lung. Very small sliver of right pleural effusion. Apparent defect in the posterior wall of the trachea at the thoracic inlet question tracheal wall injury, with or without communication with the esophagus. There is some fluid distension in the stomach. Electronically Signed by Geo Mendez MD 11/03/2019 09:13 A
[2019-11-03] MEDS: PANTOPRAZOLE 40MG VIAL (C9113 PER 1) IV SCH ×2 (09:17→21:07)
[2019-11-03 09:41] LABS: INR 1.23; PROTHROMBIN TIME 15.2 SECONDS (11.8-14.0)
[2019-11-03 09:42] LABS: PARTIAL THROMBOPLASTIN TIME 38.4 SECONDS (25.0-38.4)
[2019-11-03 11:57] LABS: ALBUMIN 3.3 GM/DL (3.2-5.2); ALT/SGPT 114 U/L (12-78); BILIRUBIN,DIRECT 0.2 MG/DL (0.0-0.2); BILIRUBIN,TOTAL 0.6 MG/DL (0.2-1.0); CK-MB VALUE MASS 5.5 NG/ML (<3.6); TOTAL PROTEIN 6.4 GM/DL (6.4-8.2); TROPONIN I < 0.02 NG/ML (< 0.10)
[2019-11-03 12:01] VITALS: BP 109/58
[2019-11-03 12:07] LABS: CPK CREATINE PHOSPHOKINASE 16733 U/L (26-192); MB/CK RELATIVE INDEX 0.03 (< OR =4)
[2019-11-03] MEDS: ONDANSETRON 4MG/2ML VIAL IV SCH ×3 (12:35→23:42)
[2019-11-03] MEDS: AUGMENTIN 500 MG TAB PO SCH ×2 (13:02→21:07)
[2019-11-03 13:19] LABS: ALBUMIN 3.1 GM/DL (3.2-5.2); ALT/SGPT 110 U/L (12-78); BILIRUBIN,TOTAL 0.5 MG/DL (0.2-1.0); BLOOD UREA NITROGEN 4 MG/DL (7-18); CALCIUM LEVEL 8.1 MG/DL (8.5-10.1); CARBON DIOXIDE LEVEL 21 MEQ/L (21-32); CHLORIDE LEVEL 108 MEQ/L (98-107); CPK CREATINE PHOSPHOKINASE 12836 U/L (26-192); CREATININE FOR GFR 0.54 MG/DL (0.55-1.30); GLOMERULAR FILTRATION RATE > 60.0 (>60); GLUCOSE, FASTING 73 MG/DL (70-100); POTASSIUM SERUM 4.2 MEQ/L (3.5-5.1); SODIUM LEVEL 139 MEQ/L (136-145); TOTAL PROTEIN 6.2 GM/DL (6.4-8.2)
[2019-11-03 13:25] LABS: HEPATITIS B SURFACE ANTIGEN NEGATIVE (NEGATIVE)
[2019-11-03 13:52] LABS: HEPATITIS B CORE ANTIBODY IGM NEGATIVE (NEGATIVE)
[2019-11-03 13:55] LABS: HEPATITIS A ANTIBODY IGM NEGATIVE (NEGATIVE)
[2019-11-03 15:50] VITALS: BP 101/60
[2019-11-03 16:29] LABS: INR 1.16; PROTHROMBIN TIME 14.5 SECONDS (11.8-14.0)
[2019-11-03] MEDS: ENOXAPARIN 30MG/0.3ML SYRINGE (J1650 PER 10MG) SC SCH (21:07)
[2019-11-03 22:00] VITALS: BP 109/70
[2019-11-04] MEDS: NS 0.45% 1,000 ML IV SCH ×2 (00:25→06:29)
[2019-11-04] MEDS: ONDANSETRON 4MG/2ML VIAL IV SCH ×2 (05:52→12:03)
[2019-11-04] MEDS: AUGMENTIN 500 MG TAB PO SCH ×2 (05:52→14:33)
[2019-11-04 06:00] VITALS: BP 111/73
[2019-11-04 06:41] LABS: BASO % 0.2 % (0.0-1.0); EOS # 0.1 10^3/uL (0.0-0.5); EOS % 1.2 % (0.0-3.0); HEMATOCRIT 29.5 % (36.0-47.0); HEMOGLOBIN 9.1 g/dl (12.0-15.5); LYMPH # 1.1 10^3/uL (1.5-5.0); LYMPH % 12.4 % (24.0-44.0); MEAN CORPUSCULAR HEMOGLOBIN 19.2 pg (27.0-33.0); MEAN CORPUSCULAR HGB CONC 30.8 g/dl (32.0-36.5); MEAN CORPUSCULAR VOLUME 62.1 fl (80.0-96.0); MONO # 0.3 10^3/uL (0.0-0.8); MONO % 3.8 % (0.0-5.0); NEUTROPHILS # 7.4 10^3/uL (1.5-8.5); NEUTROPHILS % 82.1 % (36.0-66.0); PLATELET COUNT, AUTOMATED 209 10^3/uL (150-450); RED BLOOD COUNT 4.75 10^6/uL (4.00-5.40); WHITE BLOOD COUNT 9.1 10^3/uL (4.0-10.0)
[2019-11-04 07:18] LABS: ALT/SGPT 107 U/L (12-78); BILIRUBIN,TOTAL 0.4 MG/DL (0.2-1.0); BLOOD UREA NITROGEN 2 MG/DL (7-18); CALCIUM LEVEL 8.4 MG/DL (8.5-10.1); CARBON DIOXIDE LEVEL 23 MEQ/L (21-32); CHLORIDE LEVEL 105 MEQ/L (98-107); CPK CREATINE PHOSPHOKINASE 7710 U/L (26-192); CREATININE FOR GFR 0.45 MG/DL (0.55-1.30); GLOMERULAR FILTRATION RATE > 60.0 (>60); GLUCOSE, FASTING 71 MG/DL (70-100); PHOSPHORUS LEVEL 2.4 MG/DL (2.5-4.9); POTASSIUM SERUM 3.9 MEQ/L (3.5-5.1); SODIUM LEVEL 137 MEQ/L (136-145); TOTAL PROTEIN 6.8 GM/DL (6.4-8.2)
[2019-11-04] MEDS: PANTOPRAZOLE 40MG VIAL (C9113 PER 1) IV SCH (09:01)
[2019-11-04] MEDS ORDERED: FUROSEMIDE 20MG/2ML VIAL (J1940) IV ONE (11:00)
--- NOTE | 2019-11-04 11:55 | IPN ---
DATE: 11/02/2019 Patient has been extubated today by practical nurse, Dr. Saini, and is transferring service to the hospitalist service. The patient was emergently intubated after an intentional drug overdose secondary to severe depression and suicide attempt. She had a past history of migraines and presented with altered mental status, was found to have a Michelle Coma Scale (GCS) of 3-4 and intubated for airway protection. Urine toxicology was positive for barbiturates with elevated acetaminophen level with concerns for Tylenol overdose. Presenting acetaminophen was 54.8. She was given Acetadote with repeat acetaminophen today of 2.5, INR was 1.34 and liver function tests have remained stable with bilirubin normal of 0.7 however, had been the same 298, 326 and 316. The patient does not have any abdominal pain. She complains of sore throat from the recent intubation, otherwise denies any nausea, vomiting, or any abdominal pain. She denies any asterixis, confusion. Despite tachycardia with a rate of 112, patient does not have any complaints of palpitations or dizziness. She had been febrile 101.1 and being treated for aspiration pneumonia, questionable empyema with a small right pleural effusion on chest x-ray with plans for CT chest in the morning to rule out empyema or lung abscess. Patient has been transferred to hospitalist service. No other complaints or issues on telemetry. Temperature 98.4, pulse 112, respiratory rate 16, blood pressure 123/79, 96% on room air. Generally, patient is awake, alert, oriented to person, place and time, answering questions appropriately. She is cooperative. No jugular venous distention (JVD)/thyromegaly. Anicteric sclerae. No jaundice. No cervical lymphadenopathy. Lungs are clear to auscultation with fine crackles at the right base. Heart: S1, S2, sinus tachycardia. No murmurs, rubs or gallops. Abdomen is soft, nontender, nondistended. Positive bowel sounds. Extremities: No cyanosis, clubbing or any pitting edema. LABORATORY DATA: White count 15.6, hemoglobin 10, hematocrit 32, platelet count 206. Sodium 139, potassium 3.4, chloride 109, bicarbonate 24, BUN 4, creatinine 0.56, glucose 78, calcium 7.9, total bilirubin 0.7, AST 316, ALT 86, alkaline phosphatase of 49. Toxicology: Acetaminophen initially was 54.8, currently at 2.5. INR is 1.34. Microbiology: Sputum culture with Staphylococcus (staph) aureus, heavy. Chest x-ray shows right basilar layering effusion and infiltrate. ASSESSMENT AND PLAN: This is a 19-year-old female emergently intubated for airway protection after presenting with altered mental status and suicide attempt by drug overdose. The patient has a history of migraine headaches and had barricaded herself in her room and was found to have Tylenol overdose. She had received Acetadote with improvement in her acetaminophen level; however, AST/ALT remained similar, INR is 1.3. Per Poison Control, no further Acetadote is necessary at this time, but will need to continue to watch patient's INR and PT and liver function tests. She is being treated for aspiration pneumonia on Augmentin with staph aureus. IMPRESSION: 1. Suicide attempt by intentional drug overdose and acetaminophen poisoning, status post Acetadote. Poison Control is still recommending continued every 4 hour monitoring of her liver function tests and INR, PTT. 2. Patient is currently on clears diet, status post extubation. 3. Acetaminophen overdose, status post Acetadote, every 4 hour liver function test and INR check. No nausea, vomiting or abdominal pain. Currently on clears diet. 4. Severe depression. The psychiatrist, Dr. Muhammad, had been consulted. She will need to go to inpatient mental health unit after she is medically stable. 5. History of migraines. Avoid acetaminophen. 6. Aspiration pneumonia. On Augmentin. Repeat CT chest tomorrow to rule out aspiration pneumonia. MTDD
--- NOTE | 2019-11-04 13:56 | REP ---
CHEST, SINGLE VIEW: Single view of the chest is performed. Right upper and lower lung infiltrates appear stable. Left lung remains clear. Heart and mediastinum are unremarkable and unchanged. IMPRESSION: Stable exam. Electronically Signed by Theo Canchola MD 11/04/2019 09:45 P
[2019-11-04 14:00] VITALS: BP 104/61
--- NOTE | 2019-11-04 14:30 | IPN ---
DATE: 11/03/2019 Patient complains of nausea but tolerating her diet this morning. CT chest obtained to rule out empyema or lung abscess, was negative, questionable tracheal injury. She complains of a sore throat and abdominal discomfort rated at 4/10 in the right upper quadrant. No vomiting. Temperature 97.6, pulse 107, respiratory rate 22, blood pressure 117/68, 93% on room air. Generally, patient is awake, alert, oriented to person, place and time, answering questions appropriately. Anicteric sclerae. No jaundice. No cervical lymphadenopathy or thyromegaly. No tracheal deviation. Lungs are clear to auscultation. No wheezing, rales or rhonchi. Heart: S1, S2, sinus rhythm. Abdomen is soft, nontender, nondistended. Positive bowel sounds. Extremities: No cyanosis, clubbing or any pitting edema. Laboratory data reviewed. ASSESSMENT AND PLAN: This is a 19-year-old female who was brought in after an intentional drug overdose with her migraine medications, found to have acetaminophen toxicity, emergently intubated for airway protection and treated with Acetadote for acetaminophen toxicity and hepatic injury. Patient was found to have a right lower lobe infiltrate, thought to be due to aspiration, and is being treated for aspiration pneumonia with a small pleural effusion on the right. Repeat CT showed no evidence of lung abscess or empyema. CT was reviewed by concrete mixer operator helper buttonhole facer, Dr. Vamsi Duckworth, who recommended continuing her on an oral diet as there was no sign of tracheal esophageal fistula. White count is decreasing on Augmentin with peak white count of 16.6 and current white count 13.8. Patient is still on IV fluids for rhabdomyolysis, total CK of 12.48 with normal creatinine of 0.49. Psychiatrist recommends inpatient mental health unit ([facility]) admission once medically cleared. MTDD
--- NOTE | 2019-11-04 14:47 | REP ---
CHEST, TWO VIEWS: Two views of the chest are performed and compared to prior studies, most recently a portable chest radiograph performed 4 hours prior to the current study. There are again infiltrates seen in the right upper and lower lobes. These are stable. Left lung remains clear. Heart is normal in size and the mediastinal silhouette is unremarkable. IMPRESSION: Stable right upper and lower lobe infiltrates. Electronically Signed by Theo Canchola MD 11/04/2019 09:48 P
[2019-11-04] MEDS ORDERED: guaiFENesin DM LIQ 10ML UD PO PRN (15:45)
[2019-11-04] MEDS ORDERED: PROMETHAZINE INJ 25 MG/ML VIAL (J2550) IV PRN (15:45)
[2019-11-04] MEDS ORDERED: GI COCKTAIL 50ML BTL(HYOSCYAMINE/MAALOX/LIDOCAINE VISCOUS)(1:3:1) PO PRN (15:45)
[2019-11-04] MEDS ORDERED: PROMETHAZINE INJ 25 MG/ML VIAL (J2550) IV ONE (16:15)
[2019-11-04] MEDS ORDERED: guaiFENesin DM LIQ 10ML UD PO ONE (16:15)
[2019-11-04] MEDS: AUGMENTIN 875 MG TAB PO SCH (20:05)
[2019-11-04 22:00] VITALS: BP 122/66
[2019-11-05 06:00] VITALS: BP 107/68
[2019-11-05] MEDS ORDERED: CHLORSP MT (07:47)
[2019-11-05] MEDS ORDERED: AMOX875T2 PO (07:47)
[2019-11-05 08:26] LABS: INR 1.11
[2019-11-05 09:22] LABS: ALBUMIN 3.3 GM/DL (3.2-5.2); ALT/SGPT 124 U/L (12-78); BILIRUBIN,TOTAL 0.4 MG/DL (0.2-1.0); BLOOD UREA NITROGEN 5 MG/DL (7-18); CALCIUM LEVEL 8.5 MG/DL (8.5-10.1); CARBON DIOXIDE LEVEL 23 MEQ/L (21-32); CHLORIDE LEVEL 105 MEQ/L (98-107); CPK CREATINE PHOSPHOKINASE 4358 U/L (26-192); CREATININE FOR GFR 0.41 MG/DL (0.55-1.30); GLOMERULAR FILTRATION RATE > 60.0 (>60); GLUCOSE, FASTING 66 MG/DL (70-100); POTASSIUM SERUM 4.2 MEQ/L (3.5-5.1); SODIUM LEVEL 139 MEQ/L (136-145); TOTAL PROTEIN 6.9 GM/DL (6.4-8.2)
--- NOTE | 2019-11-05 09:32 | IPNPDOC ---
Date Seen The patient was seen on 11/05/19. Progress Note no c/o. tolerating diet with a "little sore throat." still cough productive of thin white sputum . no fever or chills. no joint pains. no abd pain. PE vitals see belpw Generally, patient is awake, alert, oriented to person, place and time, answering questions appropriately.no stridor. Anicteric sclerae. No jaundice. No cervical lymphadenopathy or thyromegaly. No tracheal deviation. Lungs are clear to auscultation. No wheezing, rales or rhonchi. Heart: S1, S2, sinus rhythm. Abdomen is soft, nontender, nondistended. Positive bowel sounds. Extremities: No cyanosis, clubbing or any pitting edema. Laboratory data reviewed. ASSESSMENT AND PLAN: This is a 19-year-old female who was brought in after an intentional drug overdose with her migraine medications, found to have acetaminophen toxicity, emergently intubated for airway protection and treated with Acetadote for acetaminophen toxicity and hepatic injury. Patient was found to have a right lower lobe infiltrate, thought to be due to aspiration, and is being treated for aspiration pneumonia with a small pleural effusion on the right. Repeat CT showed no evidence of lung abscess or empyema. CT was reviewed by housekeeping department worker consumer analyst, Dr. Vamsi Duckworth, who recommended continuing her on an oral diet as there was no sign of tracheal esophageal fistula. Suicide Attempt Depression Acetaminophen Overdose, intentional Transaminitis with acute liver injury due to acetaminophen poisoning Trachea injury s/p intubation s/p intubation and mechanical ventilation for airway protection acute metabolic encephalopathy due to drug overdose acute rhabdomyolysis aspiration pneumonia plan medically stable for [facility] discharge. avoid acetaminophen products. complete full course of augmentin. VS, I&O, 24H, Fishbone Vital Signs/I&O Vital Signs Date Time Temp Pulse Resp B/P (MAP) Pulse Ox O2 Delivery O2 Flow Rate FiO2 11/05/19 06:00 98.7 83 20 107/68 (81) 96 Room Air 11/02/19 12:00 28.0 11/02/19 09:00 25 I&O- Last 24 Hours up to 6 AM 11/05/19 06:00 Intake Total 1050 ml Output Total 400 ml Balance 650 ml Laboratory Data Microbiology Microbiology 11/01/19 Gram Stain - Final, Complete 11/01/19 Sputum Culture - Final, Complete Staphylococcus Aureus KEREN RODRIGUEZ MD November 05, 2019 07:46
[2019-11-05] MEDS: AUGMENTIN 875 MG TAB PO SCH ×2 (09:35→21:39)
[2019-11-05 14:00] VITALS: BP 119/63
--- NOTE | 2019-11-05 14:46 | IPN ---
DATE: 11/04/2019 The patient complains of a cough and had been on IV fluids for rhabdomyolysis. She does not complain of any abdominal pain this morning. She is tolerating some of her diet, but not back to her full appetite yet. Unable to sleep last night, but did not want anything for insomnia. Afebrile, no chills. Temperature 99.6, pulse 89, respiratory rate 17, blood pressure 111/73, 98% on room air. General: Awake, alert, and oriented to person, place and time. Flat affect. No jugular venous distension (JVD) or thyromegaly. Lungs: Diminished bilateral crackles. Heart: S1, S2. Sinus tachycardia. The abdomen is soft, slightly tender in the right upper quadrant. No rebound or guarding. Extremities: Trace edema. LABORATORY DATA: White count 9.1, hemoglobin 9.1, hematocrit 29, platelet count 209, sodium 137, potassium 3.9, chloride 104, bicarbonate 23, BUN 2, creatinine is 0.545, glucose of 71. Total bilirubin 0.4, AST 276 decreased from 370, ALT 107 decreased from 110, alkaline phosphatase is 52. Total CK is 7710, from admission CK of 21,484. INR is 1.16 from prior, 1.34 on admission. Sputum culture with Staphylococcus aureus, heavy. Chest CT on 11/02: Multifocal pneumonia in the right lung with a small right pleural effusion, apparent defect in the posterior wall of the trachea, thoracic inlet, question of tracheal injury with or without communication with the esophagus and some fluid distension in the stomach. ASSESSMENT AND PLAN: This is a 19-year-old female who graduated from college, presented to the emergency room with an intentional suicide attempt with drug overdose. The patient was found to have elevated acetaminophen level, as well as elevated total CK of 24,000. She was emergently intubated for airway protection. Acute issues are as follows: 1. Suicide attempt secondary to severe depression. [facility] admission after the patient is medically cleared. The patient has been evaluated by Dr. Muhammad, psychiatrist. No antidepressants at this time will be started. 2. Acetaminophen toxicity due to intentional drug overdose, received 20 hour protocol with acetylcysteine. The patient currently is still being monitored by poison control, but this Acetadote has been completed. Her liver function tests are improving, slight persistent increase in AST and ALT may be due to elevated total CK levels. 3. [place] [address], current CK of 7000 with complaints of shortness of breath and fluid overload from being given 13 bags of intravenous fluid from admission. The patient remains in positive balance with increase in weight from 47.2 on admission to 49.2 kg today. The patient will be sent for a chest x-ray PA and lateral, discontinue IV fluids and a small dose of IV Lasix 20 mg IV, strict input and output. The patient is tolerating her diet well and is encouraged to take full oral intake. DISPOSITION: The patient may be transferred to inpatient mental health unit on Wednesday. Will need to monitor the patient for tracheal injury, status post intubation. There was no airway compromise. MTDD
[2019-11-05 22:00] VITALS: BP 104/59
[2019-11-06 06:00] VITALS: BP 103/67
[2019-11-06] MEDS: AUGMENTIN 875 MG TAB PO SCH ×2 (08:41→20:10)
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
[2019-11-06] MEDS ORDERED: BACIOIN5 OP (12:32)
[2019-11-06] MEDS ORDERED: AUGM875T28 PO (12:32)
[2019-11-06] MEDS ORDERED: IBUP200C25 PO (12:34)
[2019-11-06] MEDS ORDERED: ROBI1CAP PO (12:34)
[2019-11-06 14:00] VITALS: BP 95/64
[2019-11-06] MEDS: BACITRACIN OINTMENT 30GM TUBE TOP SCH ×2 (17:56→20:10)
[2019-11-06 22:00] VITALS: BP 98/65
[2019-11-07 06:00] VITALS: BP 95/61
[2019-11-07] MEDS: AUGMENTIN 875 MG TAB PO SCH (08:17)
[2019-11-07] MEDS: BACITRACIN OINTMENT 30GM TUBE TOP SCH (08:18)
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
[2019-11-07 13:40] VITALS: BP 100/60
== END 2019-11-07 13:57 | DRG 812 ==
LOC: M ED 15:41 → EDBD 15:41 → M ED INP 17:48 → ENRESERV 19:06 → M ICU 19:59 → M PCU 11-02 18:20 → M MSPAV 11-03 15:49
PROVIDERS: ADMIT Internal Medicine Pulmonary Disease; ATTEND General Practice
PROC: 0BH17EZ Insertion of Endotracheal Airway into Trachea, Via Natural or Artificial Opening (ICD-10-PCS; principal; 2019-10-31)
PROC: 5A1945Z Respiratory Ventilation, 24-96 Consecutive Hours (ICD-10-PCS; 2019-10-31)
DX: T39.1X2A Poisoning by 4-Aminophenol derivatives, intentional self-harm, initial encounter (principal); J69.0 Pneumonitis due to inhalation of food and vomit; G92 Toxic encephalopathy; G43.909 Migraine, unspecified, not intractable, without status migrainosus; F32.2 Major depressive disorder, single episode, severe without psychotic features; Z79.899 Other long term (current) drug therapy; M62.82 Rhabdomyolysis; L01.00 Impetigo, unspecified; S19.82XA Other specified injuries of cervical trachea, initial encounter; Y83.1 Surgical operation with implant of artificial internal device as the cause of abnormal reaction of the patient, or of later complication, without mention of misadventure at the time of the procedure; R74.0 Nonspecific elevation of levels of transaminase and lactic acid dehydrogenase [LDH]

== ENCOUNTER 2019-11-07 12:00 | Inpatient (IN) | payer OTHER ==
[~2019-11-07] VITALS: Ht 152.4 cm; Wt 45.4 kg
[~2019-11-07 12:00] MED LIST: AMOX875T2 PO; AUGM875T28 PO; BACIOIN5 OP; CHLORSP MT; IBUP200C25 PO; ROBI1CAP PO
[2019-11-07] MEDS ORDERED: IBUPROFEN 400 MG TAB PO PRN (12:30)
[2019-11-07] MEDS ORDERED: MOM 30ML SUSPENSION UDC PO PRN (12:30)
[2019-11-07] MEDS ORDERED: traZODone 50 MG TAB PO PRN (12:30)
[2019-11-07] MEDS ORDERED: MAALOX 30 ML SUSP *UDC PO PRN (12:30)
[2019-11-07 14:30] VITALS: BP 106/63
[2019-11-07] MEDS ORDERED: guaiFENesin DM LIQ 10ML UD PO PRN (18:00)
[2019-11-07] MEDS ORDERED: CHLORASEPTIC SPRAY MT PRN (18:00)
[2019-11-07] MEDS: AUGMENTIN 875 MG TAB PO SCH (20:06)
[2019-11-08 06:15] VITALS: BP 92/66
[2019-11-08] MEDS: AUGMENTIN 875 MG TAB PO SCH ×2 (08:03→20:00)
--- NOTE | 2019-11-08 09:16 | MHHPEPDOC ---
General Date Of Admission: Nov 08, 2019 Legal Status: 9.39 Chief Complaint "It was a bad night". History of Present Illness HISTORY OF THE PRESENT ILLNESS: Patient is a 19 -year-old , female, who presents to [facility] after overdosing on Tylenol. She spent an extensive amount time on the medical floor. She reports that she had been increasingly depressed, despondent and had an argument just prior to the overdose. She reported that she has had difficulty with her family and had been thinking about suicide prior.. Psychiatric Review of Systems Depression (2 or more weeks): depressed mood, anhedonia, feelings of excess/guilt, feelings of worthlesness, decreased energy, appetite changes, suicidal thoughts Radha (4 or more days of): denies Psychosis: other PTSD: denies Anxiety: denies Past Psychiatric History Previous Psychiatric Diagnosis: none. Previous Psychiatric Admissions: denies. Suicide Attempts: denies. Psychiatric Follow-up: none. Psychiatric medications: none. Past Medical History Medical Problems No significant medical history Family Medical/Psychiatric HX Psychiatric Disorders: No Addiction: No Suicide Attemps/Completions: No Addiction History denies Social History Childhood: "fine". Abuse/Trauma: denies. Current Living Situation: lives with family. Education: high school. Employment: not currently. Social Support: few. Legal: none noted. Marital: unmarried. Mental Status Examination General Appearance: well groomed Build: average Demeanor: average Eye Contact: avoidant Behavior: cooperative Speech: clear Mood: depressed Affect: constricted Thought Process: logical/linear Thought Content (Delusions): none reported Perception (Other): none reported Cognition(Intelligence Est.): average Oriented: Awake, Alert Insight: poor Judgment: Poor A-FIB/CHADSVASC A-FIB History Current/History of A-Fib/PAF?: No Assessment 19-year-old woman with a history of potentially quite serious severe depression presents after overdosing and that family argument Problem List Problems: (1) Major depressive disorder, recurrent Status: Acute Response to Treatment: Uncontrolled Problem Text: Start mirtazapine 7.5 mg nightly, discussed risks, benefits and potential side effects as well as alternatives Initial Treatment Plan 1. Patient was admitted on a [9.39] status. 2. Complete history was obtained. 3. With patients permission, family will be contacted and database will be expanded. 4. Patients medication regimen will be reviewed and changed accordingly. 5. Patient will be provided with protected environment. 6. Patient will be treated with individual, group, and milieu therapies. 7. Patient will receive supportive psych-education. 8. Discharge planning will commence immediately. 9. Outpatient follow-up treatment will be strongly recommended. 10. The initial treatment plan will focus initially on: * Depression. * Risk for suicide. ESTIMATED LENGTH OF STAY: 3-5 DAYS. TIME SPENT COUNSELING AND COORDINATING INITIAL CARE: 30 minutes. Vital Signs Vital Signs Date Time Temp Pulse Resp B/P (MAP) Pulse Ox O2 Delivery O2 Flow Rate FiO2 11/08/19 06:15 97.9 94 18 92/66 (75) 97 Room Air Medications Scheduled Amoxicillin/Potassium Clav (Augmentin 875-125 Tablet) 1 Each Tablet, 1 TAB PO BID Bacitracin (Bacitracin) 3.5 Gm Oint...g., 1 APLCT OP TID Scheduled PRN Guaifenesin/Dextromethorphan (Robitussin Yupca-Nbihu-Svxx Dm) 1 Each Capsule, 1 CAP PO Q4HP PRN for COUGH Ibuprofen (Ibuprofen) 200 Mg Capsule, 1 CAP PO Q4HP PRN for pain Phenol (Sore Throat [place]) 177 Ml [place], 5 SPRAY MT Q2HP PRN for SORE THROAT Allergies Coded Allergies: No Known Allergies (Verified Allergy, Unknown, 10/31/19) ROMULO DUPONT 3, 2020 09:16
--- NOTE | 2019-11-08 12:28 | HPEPDOC ---
[facility] Medical History & Physical Date of Admission Nov 07, 2019 Date of Service: Nov 08, 2019 History and Physical CHIEF COMPLAINT: Admitted to inpatient mental health unit after suicide attempt HISTORY OF PRESENT ILLNESS: 19-year-old female with no significant past medical history was initially admitted to the medical floor after attending suicidal by overdosing on top of all/Motrin. Patient was intubated on mechanical ventilation at the time of presentation, received Acetadote, has since been extubated and transferred to inpatient mental health unit when medically stable. Patient currently comfortable, without any complaints, denies shortness of breath, chest pain, nausea, vomiting, diarrhea or constipation. 10 point review of system is negative so for above PAST MEDICAL HISTORY: 1. None. PAST SURGICAL HISTORY: 1. None. SOCIAL HISTORY: Denies smoking. Denies alcohol use. Denies drug use FAMILY HISTORY: Unknown ALLERGIES: Please see below. HOME MEDICATIONS: Please see below. PHYSICAL EXAMINATION: VITAL SIGNS: Please see below. GENERAL: No distress HEENT: Normocephalic, atraumatic, moist mucous membranes NECK: Supple CARDIOVASCULAR EXAMINATION: S1, S2, no murmurs RESPIRATORY EXAMINATION: Clear to auscultation, no wheezing ABDOMINAL EXAMINATION: Soft, nontender, nondistended, positive bowel sounds EXTREMITIES: Range of motion intact SKIN: No rash NEUROLOGICAL EXAMINATION: Alert and oriented 3, no focal deficits PSYCHIATRIC EXAMINATION: Calm and cooperative LABORATORY DATA: See below. MICROBIOLOGY: Please see below. ASSESSMENT: 19-year-old female admitted to inpatient mental health unit for suicide attempt via medication overdose. PLAN: 1. Suicide attempt Overdose on Tylenol, was initially admitted to medical floor, now medically stable, no further medical management needed, further management as per psychiatry. Patient has no active medical issues at this time, please reconsult as needed. Vital Signs Vital Signs Date Time Temp Pulse Resp B/P (MAP) Pulse Ox O2 Delivery O2 Flow Rate FiO2 11/08/19 06:15 97.9 94 18 92/66 (75) 97 Room Air Home Medications Scheduled Amoxicillin/Potassium Clav (Augmentin 875-125 Tablet) 1 Each Tablet, 1 TAB PO BID Bacitracin (Bacitracin) 3.5 Gm Oint...g., 1 APLCT OP TID Scheduled PRN Guaifenesin/Dextromethorphan (Robitussin Dgzpd-Mrpex-Mjgh Dm) 1 Each Capsule, 1 CAP PO Q4HP PRN for COUGH Ibuprofen (Ibuprofen) 200 Mg Capsule, 1 CAP PO Q4HP PRN for pain Phenol (Sore Throat [place]) 177 Ml [place], 5 SPRAY MT Q2HP PRN for SORE THROAT Allergies Coded Allergies: No Known Allergies (Verified Allergy, Unknown, 10/31/19) A-FIB/CHADSVASC A-FIB History Current/History of A-Fib/PAF?: No CLOTILDE AGUILAR MD Nov 08, 2019 12:28
[2019-11-08 17:26] VITALS: BP 103/60
[2019-11-08] MEDS: MIRTAZAPINE 7.5MG PER 1/2 TABLET PO SCH (20:00)
[2019-11-09 06:25] VITALS: BP 100/54
[2019-11-09] MEDS: AUGMENTIN 875 MG TAB PO SCH ×2 (07:55→20:06)
--- NOTE | 2019-11-09 09:42 | MHIPNPDOC ---
[facility] Progress Note Progress Note DOS 11/09/2019 Events Overnight: none Group Attendance:: attends at times Symptom changes (psych ROS):, reports improving mood, better sleep and a better outlook on the situation that brought her in. Staff Report: although audit times, she generally has been jovial and friendly on approach, Medical ROS: [Gen: -fevers, chills] [Cardio: -chest pain, palpations] [[place]: -SOB, cough] [GI: -N,V,D,C] [Neuro: -tremors, msk stiffness] [Derm: -rash] MSE: Vitals: Below [General: Well dressed with good hygiene Speech: Spontaneous and fluid Thought processes: Linear and logical Thought content: Future orientated Abstract reasoning, and computation: Intact Description of associations: Intact Description of abnormal or psychotic thoughts:Denies any suicidal or homicidal ideation. Denies any auditory or visual hallucinations. Does not appear to be responding to internal stimuli. Does not appear to be endorsing any bizarre or paranoid ideation. Judgment: improved Insight: improved Orientation: Alert and orientated 3 Recent and remote memory: Intact Attention span and concentration: Intact Fund of knowledge: Adequate Mood: "okay" Affect: Euthymic with a full range] Vital Signs Vital Signs Date Time Temp Pulse Resp B/P (MAP) Pulse Ox O2 Delivery O2 Flow Rate FiO2 11/09/19 06:25 98.9 100 14 100/54 (69) 11/08/19 06:15 97 Room Air Current Medications Current Medications Medications (Trade) Dose Ordered Sig/Chava Route PRN Reason Start Time Stop Time Status Last Admin Dose Admin Al Hydrox/Mg Hydrox/Simethicone (Mylanta) 30 ml Q4HP PRN PO HEARTBURN/INDIGESTION 11/07/19 12:30 Amoxicillin/ Clavulanate Potassium (Augmentin) 875 mg BID PO 11/07/19 21:00 11/09/19 07:55 Guaifenesin/ Dextromethorphan (Robitussin Dm) 5 ml QIDP PRN PO COUGH 11/07/19 18:00 Ibuprofen (Advil) 400 mg Q6HP PRN PO PAIN 11/07/19 12:30 Magnesium Hydroxide (Milk Of Magnesia) 30 ml DAILYPRN PRN PO CONSTIPATION 11/07/19 12:30 Mirtazapine (Remeron) 7.5 mg QHS PO 11/08/19 21:00 11/08/19 20:00 Phenol (Chloraseptic [place]) 1 spray Q2HP PRN MT SORE THROAT 11/07/19 18:00 Trazodone HCl (Desyrel) 50 mg QHSP PRN PO INSOMNIA 11/07/19 12:30 11/08/19 11:22 DC Allergies Coded Allergies: No Known Allergies (Verified Allergy, Unknown, 10/31/19) Problems (1) Major depressive disorder, recurrent Status: Acute Response to Treatment: Stable Problem Specific Plan: Monitor Clinically Problem Text: Continue mirtazapine some 7.5 mg daily Plan / VTE VTE Prophylaxis Ordered?: No Plan Diet: Continue Current Activity: Continue Current Anticipated Discharge: Home (tomorrow at patient request) ROMUOL DUPONT DO Nov 09, 2019 09:42
[2019-11-09 17:29] VITALS: BP 104/59
[2019-11-09] MEDS: MIRTAZAPINE 7.5MG PER 1/2 TABLET PO SCH (20:06)
[2019-11-10 06:23] VITALS: BP 109/58
[2019-11-10] MEDS: AUGMENTIN 875 MG TAB PO SCH (08:03)
--- NOTE | 2019-11-10 10:03 | MHDSPDOC ---
[facility] Discharge Summary Discharge Summary DATE OF ADMISSION: Nov 07, 2019 at 13:58 DATE OF DISCHARGE: 11/10/2019 DISCHARGE DIAGNOSES: See Problem list below REASON FOR ADMISSION: 19-year-old woman was admitted from the medical floor after overdosing on Tylenol after she got an argument with her mother over undercooked food. CONSULTANTS INVOLVED:[ None (basic hospitalist screening)] TREATMENT AND PROGRESS ON THE UNIT : Medication changes: patient was admitted and started on mirtazapine 7.5 mg, with positive effects on mood Behavior on unit: friendly and amenable Treatment attendance:, adhered well Notable issues on presentation: patient generally improved in terms of her insight, it's unclear she did have some odd presentation as the gravity of the situation did not press her 1st State on discharge: [improved] DISCHARGE ASSESSMENT: The patient a 19 year old woman, with likely depression, presented to [facility], where they treated with an antidepressant that produces positive effects in mood, fatigue and insight.. Legal status considerations: The patient at the time of discharge did not meet criteria for involuntary admission/extension due to having a [normal] mental status exam, [fair] insight into the situation, They are engaged in the discharge process, as well as being friendly and amenable in behavioral control and havent been engaging in any observed concerning behavior or ideation recently. They decline voluntary extension/admission at this time and must be discharged in good annie, as Im unable to make a case for holding the patient against their will. They may have historical risk factors of admissions and other interactions with psychiatry however, those are not modifiable from a clinical perspective. The patient will need to be discharged in good annie. MENTAL STATUS EXAMINATION ON DISCHARGE: [General: Well dressed with good hygiene Speech: Spontaneous and fluid Thought processes: Linear and logical Thought content: Future orientated Abstract reasoning, and computation: Intact Description of associations: Intact Description of abnormal or psychotic thoughts:Denies any suicidal or homicidal ideation. Denies any auditory or visual hallucinations. Does not appear to be responding to internal stimuli. Does not appear to be endorsing any bizarre or paranoid ideation. Judgment: fair Insight: fair Orientation: Alert and orientated 3 Recent and remote memory: Intact Attention span and concentration: Intact Fund of knowledge: Adequate Mood: "okay" Affect: Euthymic with a full range] PLAN/FOLLOWUP ARRANGEMENTS: Follow up appointments made (PCP and MH in 5 days of D/C date) and safety plan completed. Safety Planning aspects completed prior to discharge [Medication supplies limited to 7 days with 4 refills to prevent accumulation to OD] [Family contact completed, educated on safe practices, instructed on removal and mitigation of dangerous means] [RN reviewed crisis hotline information and other aspects to empower patient to access care in interim before next appointment.] The amount of time spent in the coordination of care for this patient was approximately 30 minutes. Vital Signs/I&Os Vital Signs Date Time Temp Pulse Resp B/P (MAP) Pulse Ox O2 Delivery O2 Flow Rate FiO2 11/10/19 06:23 99.1 99 18 109/58 (75) 96 Room Air Medications Scheduled Amoxicillin/Potassium Clav (Augmentin 875-125 Tablet) 1 Each Tablet, 1 TAB PO BID for 7 Days, #14 Bacitracin (Bacitracin) 3.5 Gm Oint...g., 1 APLCT OP TID for 5 Days, #3.5 Mirtazapine (Remeron) 15 Mg Tablet, 7.5 MG PO QHS for mood for 7 Days, #5 Scheduled PRN Guaifenesin/Dextromethorphan (Robitussin Rdimi-[place]buqu-Frhn Dm) 1 Each Capsule, 1 CAP PO Q4HP PRN for COUGH for 5 Days, #1 Ibuprofen (Ibuprofen) 200 Mg Capsule, 1 CAP PO Q4HP PRN for pain for 10 Days, #60 Phenol (Sore Throat [place]) 177 Ml [place], 5 SPRAY MT Q2HP PRN for SORE THROAT for 5 Days, #1 Allergies Coded Allergies: No Known Allergies (Verified Allergy, Unknown, 10/31/19) Problems (1) Major depressive disorder, recurrent Status: Resolved Response to Treatment: Stable Plan / VTE VTE Prophylaxis Ordered?: No ROMULO DUPONT DO Nov 10, 2019 10:03
[2019-11-10] MEDS ORDERED: REME15TA PO (10:04)
== END 2019-11-10 13:00 | disposition home or self-care (01) | DRG 885 ==
LOC: M PSY 13:58
PROVIDERS: ADMIT Psychiatry & Neurology Psychiatry; ATTEND Psychiatry & Neurology Addiction Medicine
DX: F33.9 Major depressive disorder, recurrent, unspecified (principal); Z91.5 Personal history of self-harm